=== PATIENT | female | born 1990 | race Asian ===

== ENCOUNTER 2018-01-31 15:19 | Emergency (ER) | payer OTHER ==
[2018-01-31 17:01] LABS: EGFR Non-African American 125.7 (>60)
[2018-01-31 17:02] LABS: ABS Basophils 0 10^3/ul (0-0.2); ABS Eosinophils 0 10^3/ul (0-0.6); ABS Lymphocytes 1.5 10^3/ul (1.0-4.8); ABS Monocytes 0.9 10^3/ul (0-0.8); ABS Neutrophils 11.6 10^3/ul (1.5-7.7); ABS Nucleated RBC 0 10^3/ul; Eosinophil % 0 % (0-6); Hematocrit 39 % (35-47); Hemoglobin 13.4 g/dl (12.0-16.0); Lymphocyte % 10.9 % (25-47); Mean Corpuscular HGB Conc 34 g/dl (31-36); Mean Corpuscular Hemoglobin 30 pg (27-31); Mean Corpuscular Volume 88 fL (80-97); Mean Platelet Volume 7.8 um3 (7.4-10.4); Nucleated Red Blood Cells % 0; Platelet Count 256 10^3/ul (150-450); Red Cell Distribution Width 14 % (10.5-15); White Blood Count 14.1 10^3/ul (3.5-10.8)
[2018-01-31 17:11] LABS: INR 1.11 (0.77-1.02)
[2018-01-31] MEDS ORDERED: NS 0.9% 1000 ML* 2,000 ML IV ONE (17:13)
[2018-01-31] MEDS ORDERED: Morphine INJ* 10 MG/ML 1 ML CARPUJECT IV ONE (17:57)
[2018-01-31 18:18] LABS: Urine Appearance Cloudy; Urine Blood 3+ (Negative); Urine Color Yellow; Urine Ketones 1+ (Negative); Urine Protein Negative (Negative); Urine Specific Gravity 1.009 (1.010-1.030); Urine Urobilinogen Negative (Negative)
[2018-01-31] MEDS ORDERED: Morphine VIAL* 4 MG/ML VIAL (1 ml vial) IV ONE ×2 (18:25→18:26)
--- NOTE | 2018-01-31 19:28 | RAD ---
INDICATION: RIGHT lower quadrant abdominal pain. COMPARISON: No relevant prior exams available on the [facility]. TECHNIQUE: Ultrasound of the right lower quadrant. REPORT AND IMPRESSION: Nondiagnostic exam due to nonvisualization of the appendix. No visualized RIGHT lower quadrant free fluid or lymphadenopathy. Correlate with clinical assessment and consider CT for further evaluation if deemed appropriate.
--- NOTE | 2018-01-31 19:33 | RAD ---
Indication: RIGHT lower quadrant abdominal pain. History of endometrioma resection from the RIGHT ovary. Comparison: RIGHT lower quadrant ultrasound of the same date. Technique: Transvaginal pelvic ultrasound. Report: 8.2 x 4.5 x 5.9 cm heterogeneous echogenicity retroverted uterus. No discrete focal uterine lesions visualized. 0.58 cm endometrium. Negative for free pelvic fluid. 4.2 x 2.0 x 2.6 cm RIGHT ovary with documented vascular flow is remarkable for a complex 3.5 x 1.6 x 2.3 cm lesion with a fluid fluid level devoid of intrinsic vascularity. 2.8 x 2.4 x 2.2 cm LEFT ovary with documented vascular flow is remarkable for small follicles only. No visualized extra ovarian adnexal region lesions evident. IMPRESSION: 3.5 x 1.6 x 2.3 cm complex cystic lesion at the RIGHT ovary which may represent a hemorrhagic cyst or possibly an endometrioma given history of previous endometrioma. Normal vascular flow documented at both ovaries.
[2018-01-31] MEDS ORDERED: Iohexol 300* (CONTRAST) 10 ML SDV IV ONE (20:46)
--- NOTE | 2018-01-31 21:42 | RAD ---
INDICATION: RIGHT lower quadrant pain. Elevated white blood cell count. COMPARISON: RIGHT lower quadrant and pelvic ultrasound exams of the same date. November 30, 2017 abdomen ultrasound. TECHNIQUE: Multidetector CT images were obtained from the lung bases to the ischial tuberosities with 70 mL Omnipaque 300 IV and oral contrast. Multiplanar reformation. REPORT: Unremarkable visualized inferior thorax. Unremarkable liver, gallbladder, pancreas, spleen. Negative for CT abnormality of the upper GI, small bowel, appendix visualized medial to the cecum, or colon. Enteric contrast extends to the rectum. Physiologic small volume of free fluid at the cul-de-sac and RIGHT adnexal region. Negative for free air or hernias. Normal adrenal glands. Unremarkable kidneys with symmetric nephrograms and pyelograms. Unremarkable nondilated ureters and urinary bladder. Retroverted uterus. Approximate 2.7 cm RIGHT ovarian lesion visualized with a fluid fluid level. No intralesional calcification evident. Negative for lymphadenopathy. Normal diameter abdominal aorta and iliac arteries. Physiologic distention of the IVC. Negative for suspicious osseous lesions. IMPRESSION: 1. Normal appendix documented. 2. Physiologic small volume of cul-de-sac and RIGHT adnexal region free fluid. 3. Approximate 2.7 cm RIGHT ovarian lesion visualized with a fluid fluid level. No intralesional calcification evident. Based on correlation with ultrasound of the same date the differential includes a hemorrhagic cyst as well as an endometrioma given history of previous endometrioma.
[2018-01-31] MEDS ORDERED: oxyCODONE/Acetamin 5/325 MG* TAB PO ONE (22:14)
[2018-01-31] MEDS ORDERED: Ketorolac INJ* 30 MG/ML 1 ML VIAL IV PUSH ONE (22:17)
[2018-01-31 22:54] VITALS: BP 112/60
--- NOTE | 2018-01-31 23:33 | ED ---
Denise Jackman Rebecca, scribed for Delilah Romero MD on 01/31/18 at 1657 . Abdominal Pain/Female - HPI Summary HPI Summary: Pt is a 27 y/o F who presents to ED c/o abdominal pain. Sx began last night at approximately 1999. Pain was initially mild, then in the middle of the night it worsened significantly, waking her up from sleep and preventing her from falling back asleep. Pain is described as being located diffusely throughout the abdomen but also localizes to the RLQ. Pain is severe, ranked 8/10. Per nurse's triage, pain is described as dull and aching. Sx aggravated by nothing and alleviated by lying down which decreases the pain to 7.5/10. Additionally c/ o nausea and decreased appetite. Denies fever and vomiting. LNMP started yesterday which is normal for her and she rules out as she is not sexually active. Pt states this period came on time for when she was expecting it. No history. PMHx endometriosis and right ovarian cyst (surgically removed). Is not on oral contraceptives. Dr. Koch from [facility] called prior to her arrival, discussing the case and reporting and her WBC at [place] was 14. - History of Current Complaint Chief Complaint: EDAbdPain Stated Complaint: ABD PAIN Time Seen by Provider: 01/31/18 15:46 Hx Obtained From: Patient, Other: - [facility], Dr. Koch Hx Last Menstrual Period: started 01/30/18 ?: No - Onset/Duration: Lasting Days - Started yesterday, Still Present, Worse Since - Middle of the night Timing: Constant Severity Initially: Moderate Severity Currently: Severe Pain Intensity: 8 Pain Scale Used: 0-10 Numeric Location: Diffuse, Discrete At: RLQ Radiates: No Character: Dull, Other: - Aching Aggravating Factor(s): Nothing Alleviating Factor(s): Other: - Lying down Associated Signs and Symptoms: Positive: Nausea. Negative: Fever, Vomiting Simlar Episode/Dx as:: endometriosis, ovarian cyst - Risk Factors Ectopic Risk Factor: Prior Pelvic Surgery Ovarian Torsion Risk Factor: Ovarian Cysts/Tumors Allergies/Adverse Reactions: Allergies Allergy/AdvReac Type Severity Reaction Status Date / Time No Known Allergies Allergy Verified 01/31/18 15:24 Home Medications: Home Medications Ibuprofen TAB* [Motrin TAB* 600 MG] 600 mg PO DAILY PRN 01/31/18 [History Confirmed 01/31/18] PMH/Surg Hx/FS Hx/Imm Hx Previously Healthy: Yes Cardiovascular History: Denies: Hx Hypertension History: Reports: Other Problems/Disorders - Hx right ovarian cyst and endometriosis - Surgical History Surgery Procedure, Year, and Place: laparoscopic surgery for an ovarian cyst in [place] Infectious Disease History: No Infectious Disease History: Denies: Traveled Outside the [place] in Last 30 Days - Family History Known Family History: Positive: Diabetes - grandparents, Other - Lung CA ( maternal grandmother) - Social History Occupation: Student - [place] Alcohol Use: None Substance Use Type: Reports: None Smoking Status (MU): Never Smoked Tobacco Review of Systems Negative: Fever Cardiovascular: Negative Respiratory: Negative Positive: Abdominal Pain, Nausea, Other - Decreased appetite. Negative: Vomiting Positive: no symptoms reported, other - has menses now Skin: Negative Neurological: Negative Psychological: Normal All Other Systems Reviewed And Are Negative: Yes Physical Exam - Summary Physical Exam Summary: Appearance: Ill-appearing, moderate pain distress, well-nourished, afebrile Skin: Warm, color reflects adequate perfusion, dry Head: Normal Head/Face inspection, Atraumatic Eyes: Conjunctiva clear ENT: Normal inspection Neck: Supple, no nodes, no JVD. Respiratory: Lungs clear, Normal breath sounds, no respiratory distress Cardio: RRR, No murmur, pulses normal, brisk capillary refill Abdomen: Soft, tender in the RLQ, positive guarding, no rebound, no masses, no organomegaly Bowel sounds: present Musculoskeletal: Strength Intact/ROM intact. No calf tenderness. No edema. Psychological: Normal Neuro: Alert, muscle tone normal, no focal deficit Triage Information Reviewed: Yes Vital Signs On Initial Exam: Initial Vitals Temp Pulse Resp BP Pulse Ox 99.6 F 103 16 113/76 100 01/31/18 15:24 01/31/18 15:24 01/31/18 15:24 01/31/18 15:24 01/31/18 15:24 Vital Signs Reviewed: Yes Diagnostics - Vital Signs Vital Signs Temp Pulse Resp BP Pulse Ox 01/31/18 15:24 99.6 F 103 16 113/76 100 - Laboratory Lab Results: Lab Results 01/31/18 Range/Units 16:12 Sodium Pending Potassium Pending Chloride Pending Carbon Dioxide Pending Anion Gap Pending BUN Pending Creatinine Pending Est GFR ( Amer) Pending Est GFR (Non-Af Amer) Pending BUN/Creatinine Ratio Pending Glucose Pending Calcium Pending Total Bilirubin Pending AST Pending ALT Pending Alkaline Phosphatase Pending C-Reactive Protein Pending Total Protein Pending Albumin Pending Globulin Pending Albumin/Globulin Ratio Pending Amylase Pending Lipase Pending Beta HCG, Quant < 0.60 mIU/mL Result Diagrams: 01/31/18 16:13 01/31/18 16:12 Lab Statement: Any lab studies that have been ordered have been reviewed, and results considered in the medical decision making process. - CT CT Abd/Pel CT Interpretation Completed By: Radiologist - 1. Normal appendix documented. 2. Physiologic small volume of cul-de-sac and RIGHT adnexal region free fluid. 3. Approximate 2.7 cm RIGHT ovarian lesion visualized with a fluid fluid level. No intralesional calcification evident. Based on correlation with ultrasound of the same date the differential includes a hemorrhagic cyst as well as an endometrioma given history of previous endometrioma. ED physician reviewed this radiology report. - Ultrasound No standard instances Ultrasound Interpretation Completed By: Radiologist - Transvaginal US: 3.5 x 1.6 x 2.3 cm complex cystic lesion at the RIGHT ovary which may represent a hemorrhagic cyst or possibly an endometrioma given history of previous endometrioma. Normal vascular flow documented at both ovaries. ED physician reviewed this report. Appendix US: Nondiagnostic exam due to nonvisualization of the appendix. No visualized RIGHT lower quadrant free fluid or lymphadenopathy. Correlate with clinical assessment and consider CT for further evaluation if deemed appropriate. ED physician reviewed this report. Re-Evaluation - Re-Evaluation First Eval Re-Evaluation Time: 17:55 Change: Unchanged Comment: Explaining the attempt to spare the CT by ordering US appendix, and US transvaginal to eval ovaries. Pt continues to be in pain and is now requesting pain medication. Agrees to the transvaginal US. Will put in orders for morphine. Second Eval Re-Evaluation Time: 20:29 Change: Unchanged Comment: Informed of the cyst and pain is returning, currently 04/22. Agrees to the CT. Third Eval Re-Evaluation Time: 22:00 Change: Improved Comment: Advised of CT results. Would still like pain medication. Will give toradol IV and po percocet. Friend is with pt to drive her home to [place]. Pt is leaving for [place] on February 05 for 3 months. Abdominal Pain Fem Course/Dx - Course Course Of Treatment: Have ordered US of appendix and transvaginal to evaluate ovaries and will try to spare the CT. US tech states it wont harm the results of the US to have her start drinking for the CT. Appendix US was nondiagnostic and transvaginal US revealed right ovarian cyst. Discussed with CT staff who report that her CT [place] be done at 2029. CT Abd/Pel reveals a normal appendix with right ovarian lesion with full findings above. In the ED course, pt received morphine and fluids, then ketorolac and po percocet, with relief. Discussed her care with Dr. Hutchison who advises to suppress ovulation with control pills and follow up in the office. Pt will also need repeat US in approx 8 weeks. Pt is advised of risk of DVT with birthcontrol pills. Friend also witnesses instructions. Especially on long plane rides to and from [place], pt is advised to walk around, pump legs to increase blood flow and to seek medical attention immediately if any CP or SOB, or calf pain. - Diagnoses Differential Diagnosis: Positive: Appendicitis, Constipation, Ectopic , Ovarian Cyst, , Urinary Tract Infection Provider Diagnoses: RLQ abdominal pain, Ovarian cyst, Endometriosis, Hypokalemia Is Visit Related: No - Provider Notifications Discussed Care Of Patient With: Dereje Corona Time Discussed With Above Provider: 20:11 Instructed by Provider To: Other - Discussed the 2 US that were done, concurs that US appendix is nondxtic, and with elevated wbc, agrees with doing CT. Also discussed with Dr. Hutchison ([facility] [facility]) who advises to suppress ovulation with birthcontrol pills and recommends LoEstrin 1.5/30. Advises to tell pt of risk for DVT. Discharge - Sign-Out/Discharge Documenting (check all that apply): Discharge/Admit/Transfer - home - Discharge Plan Condition: Stable Disposition: HOME Prescriptions: Norethindrone-E.estradiol-Iron [Loestrin Fe 1.5-30 Tablet] 1 each PO DAILY #30 tablet Patient Education Materials: Endometriosis (ED), Ovarian Cyst (ED) Referrals: [facility] - Omid MILIAN [Primary Care Provider] - If Needed Nasrin Hutchison MD [Medical Doctor] - 2 Days (Dr. Hutchison would like to see you in the [facility] office in 1-2 days before you return to [place]. She will repeat an ultrasound in approximately 8 weeks. ) Additional Instructions: Start the Lo-Estrin 1.5/30 in the am, to suppress ovulation. Have definite follow up with Dr. Hutchison in 1-2 days before you return to [place]. Return to the ER if you have new or worsening symptoms. - Billing Disposition and Condition Condition: STABLE Disposition: HOME The documentation as recorded by the Denise mcfarland Rebecca accurately reflects the service I personally performed and the decisions made by , Delilah Romero MD.
== END 2018-01-31 22:53 | disposition home or self-care (01) ==
LOC: ED 15:19
DX: N83.201 Unspecified ovarian cyst, right side (principal); N80.9 Endometriosis, unspecified; E87.6 Hypokalemia
CPT/HCPCS: 36415; 74177; 76705; 76830; 80053; 81003; 81015; 82150; 83605; 83690; 84702; 85025; 85610; 85730; 86140; 87086; 96374; 96375; 99283; A9270-GY; J1885; J2270; Q9967